=== PATIENT | male | born 1995 | race African-American/Black ===

== ENCOUNTER → 2016-12-12 | Outpatient (CLI) | payer OTHER ==
--- NOTE | 2016-12-12 15:01 | REP ---
HISTORY: Followup right pleural effusion. There are no priors for comparison. There are no plain films to review. The lack of intravenous contrast decreases the sensitivity of the exam. Right infrahilar adenopathy is suspected on this limited noncontrast enhanced exam. There is no evidence of gross mediastinal or left hilar adenopathy. There is no pericardial effusion. There is a right pleural effusion, small to moderate. The imaged upper abdomen and imaged osseous structures are unremarkable. Evaluation of the lung driscoll show coalescing patchy parenchymal opacities with consolidation in the right lower lobe. Similar patchy opacities are seen in the left lower lobe, but to a much lesser degree. The remainder of the lung driscoll are clear. IMPRESSION: Bilateral lower lobe pneumonia right greater than left and with a right pleural effusion. Signed by Luis Griffin DO 12/12/2016 04:27 P
== END ==
LOC: M RAD 13:41
DX: J18.9 Pneumonia, unspecified organism (principal)

== ENCOUNTER 2017-06-12 10:47 | Emergency (ER) | payer OTHER ==
[2017-06-12 12:23] LABS: BASO % 0.4 % (0.0-1.0); EOS # 0.2 10^3/uL (0.0-0.50); HEMOGLOBIN 14.7 g/dl (14.0-18.0); IMMATURE GRANULOCYTE % 0.3 % (0-0); LYMPH # 1.5 10^3/uL (1.5-6.5); LYMPH % 20.4 % (24.0-44.0); MEAN CORPUSCULAR HEMOGLOBIN 28.4 pg (27.0-33.0); MEAN CORPUSCULAR HGB CONC 34.2 g/dl (32.0-36.5); MEAN CORPUSCULAR VOLUME 83.2 fl (80.0-96.0); MONO # 0.7 10^3/uL (0.0-0.8); NEUTROPHILS # 4.7 10^3/uL (1.8-7.7); NEUTROPHILS % 65.9 % (36.0-66.0); PLATELET COUNT, AUTOMATED 194 10^3/uL (150-450); RED BLOOD COUNT 5.17 10^6/uL (4.30-6.10); RED CELL DISTRIBUTION WIDTH 13.3 % (11.5-14.5); WHITE BLOOD COUNT 7.1 10^3/uL (4.0-10.0)
[2017-06-12 12:37] LABS: AMORPHOUS SEDIMENT RFX MODERATE (NEGATIVE); KETONE, URINE AUTO RFX NEGATIVE (NEGATIVE); LEUKOCYTE ESTERASE UR AUTO RFX NEGATIVE (NEGATIVE); NITRITE, URINE AUTO RFX NEGATIVE (NEGATIVE); RBC, URINE AUTO RFX 1 /HPF (0-3); SPECIFIC GRAVITY UR AUTO RFX 1.021 (1.002-1.035); SQUAM EPITHELIAL CELL UR AURFX 0 /HPF (0-6); WBC, URINE AUTO RFX 1 /HPF (0-3)
[2017-06-12 12:45] LABS: PROTHROMBIN TIME 15.4 SECONDS (12.4-14.5)
[2017-06-12 12:46] LABS: PARTIAL THROMBOPLASTIN TIME 32.3 SECONDS (26.8-37.9)
[2017-06-12 12:48] LABS: ANION GAP 6 MEQ/L (8-16); BLOOD UREA NITROGEN 11 MG/DL (7-18); CALCIUM LEVEL 8.8 MG/DL (8.5-10.1); CARBON DIOXIDE LEVEL 29 MEQ/L (21-32); CHLORIDE LEVEL 105 MEQ/L (98-107); CPK CREATINE PHOSPHOKINASE 674 U/L (39-308); CREATININE FOR GFR 0.95 MG/DL (0.70-1.30); GLOMERULAR FILTRATION RATE > 60.0 (>60); GLUCOSE, FASTING 89 MG/DL (70-100); MAGNESIUM LEVEL 2.1 MG/DL (1.8-2.4); SODIUM LEVEL 140 MEQ/L (136-145); TROPONIN I < 0.02 NG/ML (< 0.10)
[2017-06-12 12:53] LABS: CK-MB VALUE MASS 4.2 NG/ML (0.0-3.6); MB/CK RELATIVE INDEX 0.62 (< OR =4)
[2017-06-12] MEDS: NS 1,000 ML IV (13:00)
[2017-06-12 13:08] LABS: ALBUMIN 3.9 GM/DL (3.2-5.2); ALBUMIN/GLOBULIN RATIO 1.15 (1.00-1.93); ALKALINE PHOSPHATASE 78 U/L (45-117); ALT/SGPT 34 U/L (12-78); AST/SGOT 36 U/L (7-37); BILIRUBIN,DIRECT 0.2 MG/DL (0.0-0.2); BILIRUBIN,TOTAL 0.6 MG/DL (0.2-1.0); TOTAL PROTEIN 7.3 GM/DL (6.4-8.2)
== END 2017-06-12 14:00 | disposition home or self-care (01) ==
LOC: M ED 10:47
DX: R55 Syncope and collapse (principal); R74.8 Abnormal levels of other serum enzymes; Z72.0 Tobacco use
CPT/HCPCS: 70450

== ENCOUNTER 2018-09-25 11:28 | Emergency (ER) | payer OTHER ==
[~2018-09-25] VITALS: Ht 172.7 cm; Wt 72.7 kg
[~2018-09-25 11:28] MED LIST: DOXY100C37 PO
[2018-09-25] MEDS ORDERED: KETOROLAC 30 MG/ML VIAL (J1885) IV ONE (12:45)
[2018-09-25 13:00] VITALS: BP 127/60
--- NOTE | 2018-09-25 13:08 | REP ---
CHEST PA AND LATERAL: 09/25/2018. Comparison: 12/12/2016 CT. Clinical history: Chest pain. Findings: The two-views show the lung driscoll well inflated and without infiltrate, effusion, atelectasis or mass. No pulmonary nodule or pleural thickening. No pneumothorax or pneumomediastinum. The heart, mediastinal and hilar contours are normal. Bony thorax shows no acute compression deformity. Visualized sternum, ribs, clavicles and shoulders grossly intact. No free air. Impression: 1. No acute cardiopulmonary change. Electronically Signed by Mukul Stout MD 09/25/2018 05:11 P
--- NOTE | 2018-09-26 17:39 | ECGEPIP ---
Stationary ECG Study [facility] - ED Test Date: 2018-09-25 Pat Name: KAVYA RODRIGUEZ Department: Room: - Gender: M [employer] Worker: rossana : 1995 Requested By: Mee Pope Order Number: [id number] Reading MD: Mee Pope Measurements Intervals [place] Rate: 59 P: 52 NC: 150 QRS: 73 QRSD: 101 T: 40 QT: 406 QTc: 403 Interpretive Statements SINUS BRADYCARDIA ST ELEVATION CONSISTENT WITH INJURY, PERICARDITIS, OR EARLY REPOLARIZATION SIMILAR 06/12/17 Electronically Signed On 09-26-2018 17:38:53 EDT by Mee Pope
== END 2018-09-25 13:16 | disposition home or self-care (01) ==
LOC: M ED 11:28
DX: R07.89 Other chest pain (principal); R00.1 Bradycardia, unspecified
CPT/HCPCS: 71046; 85379; 93005; 96374; 99284; J1885